=== PATIENT | male | born 1960 | race Two or more races ===

== ENCOUNTER 2016-07-01 10:43 | Emergency (ER) | payer OTHER ==
[~2016-07-01] VITALS: Ht 170.2 cm; Wt 83.9 kg
[2016-07-01 10:49] VITALS: BP 143/88
[2016-07-01] MEDS ORDERED: TETANUS-DIPTH-ACEL PERTUSSIS 0.5ML SYRG IM ONE (12:00)
== END 2016-07-01 12:41 | disposition home or self-care (01) ==
LOC: ER 10:43
DX: S61.232A Puncture wound without foreign body of right middle finger without damage to nail, initial encounter (principal); M79.5 Residual foreign body in soft tissue; I10 Essential (primary) hypertension; Z86.73 Personal history of transient ischemic attack (TIA), and cerebral infarction without residual deficits; X58.XXXA Exposure to other specified factors, initial encounter; Y93.89 Activity, other specified; Y99.8 Other external cause status; Y92.89 Other specified places as the place of occurrence of the external cause
CPT/HCPCS: 10120; 90471; 90715

== ENCOUNTER 2024-04-05 14:17 | Inpatient (IN) | payer BC, OTHER ==
[~2024-04-05] VITALS: Ht 167.6 cm; Wt 79.5 kg
--- NOTE | 2024-04-05 14:26 | ED.PDOC ---
HPI Comments 63-year-old male with PMHx HTN brought in by EMS presents with a chief complaint of chest pain x 1 hour onset with associated nausea. Patient reports that his pain is localized to his left chest wall, radiates to his back, describes as sharp, and rates his pain a 6/10. Patient mentions that he had a CABG done in 2021, but has not had an PA before. Patient endorses smoking cigarettes, but denies drug use. Patient does mention that he has been drinking alcohol today. No other symptoms or modifying factors present at this time. Chief Complaint: Chest Pain Time Seen by MD: 14:14 Primary Care Provider: BJ Reviewed Notes: Medications, Allergies Allergies: Coded Allergies: NO KNOWN ALLERGIES (Unverified , 09/01/11) Information Source: Patient Mode of Arrival: EMS Severity: Moderate Timing: Hours Duration: Since onset Prehospital treatment: None Location: Chest (L) Radiation: Back Quality: Sharp Onset: At Rest Cardiac Risk Factors: Smoker, HTN History of: Similar pain in past Past Medical History PAST MEDICAL HISTORY: CAD, HTN Surgical History: Denies all surgeries Family History Family History: Unknown Social History Smoker: Non-Smoker Alcohol: Denies ETOH Use Drugs: Denies Drug Use Lives In: Home Constitutional: denies: chills, diaphoresis, fatigue, fever, malaise, sweats, w eakness, others EENTM: denies: blurred vision, double vision, ear bleeding, ear discharge, ear drainage, ear pain, ear ringing, eye pain, eye redness, hearing loss, mouth pain, mouth swelling, nasal discharge, nose bleeding, nose congestion, nose pain, photophobia, tearing, throat pain, throat swelling, voice changes, others Respiratory: denies: cough, hemoptysis, orthopnea, SOB at rest, shortness of breath, SOB with excertion, stridor, wheezing, others Cardiovascular: reports: chest pain; denies: dizzy spells, diaphoresis, Dyspnea on exertion, edema, irregular heart beat, left arm pain, lightheadedness, palpitations, PND, syncope, others Gastrointestinal: reports: nausea; denies: abdomen distended, abdominal pain, blood streaked bowels, constipated, diarrhea, dysphagia, difficulty swallowing, hematemesis, melena, poor appetite, poor fluid intake, rectal bleeding, rectal pain, vomiting, others Genitourinary: denies: burning, dysuria, flank pain, frequency, hematuria, incontinence, penile discharge, penile sore, pain, testicle pain, testicle swelling, urgency, others Neurological: denies: dizziness, fainting, headache, left sided numbness, left sided weakness, numbness, paresthesia, pre-existing deficit, right sided numbness, right sided weakness, seizure, speech problems, tingling, tremors, weakness, others Musculoskeletal: denies: back pain, gout, joint pain, joint swelling, muscle pain, muscle stiffness, neck pain, others Integumetry: denies: bruises, change in color, change in hair/nails, dryness, laceration, lesions, lumps, rash, wounds, others Allergic/Immunocompromised: denies: Difficulty Healing, Frequent Infections, Hives, Itching, others Hematologic/Lymphatic: denies: anemia, blood clots, easy bleeding, easy bruising, swollen glands, others Endocrine: denies: excessive hunger, excessive sweating, excessive thirst, excessive urination, flushing, intolerance to cold, intolerance to heat, unexplained weight gain, unexplained weight loss, others Psychiatric: denies: anxiety, bipolar disorder, depression, hopeless, panic disorder, schizophrenia, sleepless, suicidal, others All Other Systems: Reviewed and Negative Physical Exam General Appearance: Moderate Distress HEENT: Normal ENT Inspection, Pharynx Normal, TMs Normal Neck: Full Range of Motion, Non-Tender, Normal, Normal Inspection Respiratory: Chest Non-Tender, Lungs Clear, No Accessory Muscle Use, No Respiratory Distress, Normal Breath Sounds Cardiovascular: No Edema, No JVD, No Murmur, No Gallop, Normal Peripheral Pulses, Regular Rate/Rhythm Breast Exam: Deferred Gastrointestinal: No Organomegaly, Non Tender, No Pulsatile Mass, Normal Bowel Sounds, Soft Genitalia: Deferred Pelvic: Deferred Rectal: Deferred Extremities: No calf tenderness, Normal capillary refill, Normal inspection, Normal range of motion, Non-tender, No pedal edema Musculoskeletal : Apperance: Normal Neurologic: Alert, gastroenterology technician II-XII nml as Tested, No Motor Deficits, Normal Affect, Normal Mood, No Sensory Deficits Cerebellar Function: NOT DONE Reflexes: NOT DONE Skin: Dry, Normal Color, Warm Peripheral Pulses: 3+ Radial (R), 3+ Radial (L) Lymphatic: No Adenopathy Was a procedure done? Was a procedure done?: No CP Differential Dx Differential Diagnosis: A-fib, A-Flutter, Angina, Anxiety / Panic Attack, At rial Dysrhythmia, Electrolyte Disorder X-Ray, Labs, Meds, VS Vital Signs Date Time Temp Pulse Resp B/P (MAP) Pulse Ox O2 Delivery O2 Flow Rate FiO2 04/05/24 14:38 79 04/05/24 14:26 98.2 92 18 102/64 (77) 98 Lab Test 04/05/24 14:43 Range/Units White Blood Count 4.6 4.4-10.8 10^3/uL Red Blood Count 4.55 4.5-5.90 10^6/uL Hemoglobin 15.3 13.5-17.5 g/dL Hematocrit 42.7 41.0-53.0 % Mean Corpuscular Volume 94.0 80.0-100.0 fL Mean Corpuscular Hemoglobin 33.7 H 28.0-32.0 pg Mean Corpuscular Hemoglobin Concent 35.8 32.0-36.0 g/dL Red Cell Distribution Width 13.7 11.8-14.3 % Platelet Count 139 L 140-450 10^3/uL Mean Platelet Volume 7.8 6.9-10.8 fL Neutrophils (%) (Auto) 46.0 37.0-80.0 % Lymphocytes (%) (Auto) 45.0 10.0-50.0 % Monocytes (%) (Auto) 6.4 0.0-12.0 % Eosinophils (%) (Auto) 1.3 0.0-7.0 % Basophils (%) (Auto) 1.3 0.0-2.0 % Neutrophils # (Auto) 2.1 1.6-8.6 10 ^3/uL Lymphocytes # (Auto) 2.1 0.4-5.4 10 ^3/uL Monocytes # (Auto) 0.3 0-1.3 10 ^3/uL Eosinophils # (Auto) 0.1 0-0.8 10 ^3/uL Basophils # (Auto) 0.1 0-0.2 10 ^3/uL Nucleated Red Blood Cells 0.5 % Sodium Level 127 L 136-145 mmol/L Potassium Level 3.9 3.5-5.1 mmol/L Chloride Level 94 L 98-107 mmol/L Carbon Dioxide Level 20 20-31 mmol/L Anion Gap 13 5-15 Blood Urea Nitrogen 13 9-23 mg/dL Creatinine 0.72 0.700-1.30 mg/dL Glomerular Filtration Rate Calc 103 >90 mL/min BUN/Creatinine Ratio 18.1 10.0-20.0 Serum Glucose 92 74-106 mg/dL Calcium Level 8.8 8.7-10.4 mg/dL Troponin I High Sensitivity 5 </=54 ng/L Plasma/Serum Blood Alcohol Pending Patient alert. Complaining of chest pain. Alcohol abuse. Vitals stable. His last drink was this morning. States that his chest pain does radiate to the back. Sodium is low. Cardiac marker within normal limits. EKG reviewed does not show any acute changes. WBC within normal limits. Establish intravenous access. Was given fluids. Was given aspirin. Chest x-ray reviewed does not show any acute changes. Explained to the patient. Continue cardiac monitoring. Time of 1ST Reevaluation: 14:44 Reevaluation 1ST: Unchanged Patient Education/Counseling: Diagnosis, Treatment, Prognosis Family Education/Counseling: Diagnosis, Treatment, Prognosis Departure 1 Departure Time of Disposition: 15:32 Impression: Primary Impression: Chest pain of unknown etiology Additional Impressions: Alcohol abuse Hyponatremia Disposition: ADMITTED INPATIENT Admit to: Med Surg Condition: Guarded Critical Care Note Critical Care Time?: No Stability Stability form required: No Heart Score Heart Score: Heart Score Response (Comments) Value History Slightly Suspicious 0 EKG Normal 0 Age 45-64 1 Risk Factors 1 or 2 risk factors 1 Troponin Normal limit 0 Total 2 I personally scribed for BERNIE RAMIREZ MD ([email or web address]) on 04/05/24 at 14:26. Electronically submitted by Oseas Martinez ([email or web address]). BERNIE RAMIREZ MD Apr 05, 2024 14:26
[2024-04-05] MEDS: SODIUM CHLORIDE 0.9% 1,000 ML IV ONE (14:30)
[2024-04-05] MEDS: THIAMINE 100mg/ml INJ (200mg/2ml VIAL) IV ONE (14:30)
[2024-04-05] MEDS: ASPirin 325 MG TAB PO ONE (14:30)
[2024-04-05 14:55] LABS: Basophils # (auto) 0.1 10 ^3/uL (0-0.2); Basophils % (auto) 1.3 % (0.0-2.0); Eosinophils # (auto) 0.1 10 ^3/uL (0-0.8); Eosinophils % (auto) 1.3 % (0.0-7.0); Hematocrit 42.7 % (41.0-53.0); Hemoglobin 15.3 g/dL (13.5-17.5); Lymphocytes # (auto) 2.1 10 ^3/uL (0.4-5.4); Mean Corpuscular Hemoglobin 33.7 pg (28.0-32.0); Mean Corpuscular Hgb Conc. 35.8 g/dL (32.0-36.0); Monocytes # (auto) 0.3 10 ^3/uL (0-1.3); Monocytes % (auto) 6.4 % (0.0-12.0); Neutrophils # (auto) 2.1 10 ^3/uL (1.6-8.6); Nucleated Red Blood Cells % 0.5 %; Platelet Count (auto) 139 10^3/uL (140-450); Red Blood Cells 4.55 10^6/uL (4.5-5.90); Red Cell Distribution Width 13.7 % (11.8-14.3); White Blood Cell 4.6 10^3/uL (4.4-10.8)
--- NOTE | 2024-04-05 15:10 | DVH ---
CHEST RADIOGRAPH Indication: sob Technique: Single frontal view of the chest was obtained Comparison: None FINDINGS: Lines and Tubes: None Lungs: No focal consolidation. Pleura: No effusion. No pneumothorax. Cardiomediastinal contours: Unremarkable Bones: No acute osseous abnormality. IMPRESSION: No acute cardiopulmonary disease.
[2024-04-05 15:11] LABS: Potassium 3.9 mmol/L (3.5-5.1)
[2024-04-05 15:12] LABS: Anion Gap 13 (5-15); Calcium 8.8 mg/dL (8.7-10.4)
[2024-04-05 15:17] LABS: BUN/Creatinine Ratio 18.1 (10.0-20.0); Blood Urea Nitrogen 13 mg/dL (9-23); Glucose 92 mg/dL (74-106)
[2024-04-05 15:20] LABS: Carbon Dioxide 20 mmol/L (20-31); Chloride 94 mmol/L (98-107); Sodium 127 mmol/L (136-145)
[2024-04-05 15:34] LABS: Blood Alcohol 307.3 mg/dL (<10)
[2024-04-05 16:44] VITALS: PULSE 75; RESP 18; O2SAT 98
[2024-04-05] MEDS ORDERED: LORazepam 2MG/ML-1ML VIAL IV PRN ×2 (17:45→22:00)
[2024-04-05] MEDS ORDERED: ONDANSETRON HCL 4 MG/2 ML VIAL IV PRN (18:30)
[2024-04-05] MEDS ORDERED: hydrALAZINE HCL 20 MG/ML VL IV PRN (18:30)
[2024-04-05] MEDS ORDERED: MORPHINE SULFATE INJ 2 MG/ml SYRG IV PRN (18:30)
[2024-04-05] MEDS ORDERED: NITROGLYCERIN 0.4 MG SL TAB SL PRN (18:30)
--- NOTE | 2024-04-05 19:06 | DVHHP2 ---
History of Present Illness Reason for Visit: Alcohol withdrawal History of Present Illness 63-year-old male with PMHx HTN brought in by EMS presents with a chief complaint of chest pain x 1 hour onset with associated nausea. Patient reports that his pain is localized to his left chest wall, radiates to his back, describes as sharp, and rates his pain a 6/10. 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 Patient was sober for 20 years, until 5 years ago patient continued drinking excessively, per patient's he was recently in the hospital for the same thing week. Patient endorses smoking cigarettes, but denies drug use. Patient does mention that he has been drinking alcohol today last drink 0600. No other symptoms or modifying factors present at this time. Past Medical History Retention, alcohol abuse, smoker, COPD, CAD Past Surgical History CABG Family History Denies Smoke: <1 pack per day ALCOHOL: heavy Drugs: None Lives: with Family Review of Systems Constitutional: Yes: Weakness, Malaise; No: Fever, Chills, Sweats, Other Eyes: No: Pain, Vision change, Conjunctivae inflammation, Eyelid inflammation, Other, Redness ENT: No: Ear pain, Ear discharge, Nose pain, Nose discharge, Nose congestion, Mouth pain, Mouth swelling, Throat pain, Throat swelling, Other Respiratory: No: Cough, Dry, Shortness of breath, SOB with excertion, Wheezing, Hemoptysis, Pleuritic Pain, Sputum, Wheezing, Other Cardiovascular: No: Chest Pain, Palpitations, Orthopnea, Paroxysmal Noc. Dyspnea, Edema, Lt Headedness, Other Gastrointestinal: Nausea Genitourinary: No Dysuria, No Frequency, No Incontinence, No Hematuria, No Retention, No Other Musculoskeletal: No: other, neck pain, shoulder pain, arm pain, back pain, hand pain, leg pain, foot pain Skin: No: Rash, Lesions, Jaundice, Bruising, Other Neurological: No: Weakness, Numbness, Incoordination, Change in speech, Confusion, Seizures, Other Allergies: Coded Allergies: NO KNOWN ALLERGIES (Unverified , 09/01/11) Medications Current Medications Medications Dose Ordered Sig/Macho Route Start Time Stop Time Status Last Admin Dose Admin Lorazepam 1 mg Q6H IV 04/05/24 17:45 Hold Lorazepam 1 mg Q2HPRN PRN IV 04/05/24 17:45 Lorazepam 2 mg Q3H IV 04/05/24 17:45 Folic Acid 1 mg/ Magnesium Sulfate 8 meq/ Multivitamins 10 ml/Thiamine HCl 100 mg/Sodium Chloride 1,013.2 ml @ 126.247 mls/hr DAILY@1800 INJ 04/05/24 18:00 Lisinopril 10 mg DAILY PO 04/06/24 10:00 Atorvastatin Calcium 40 mg HS PO 04/05/24 22:00 Aspirin 81 mg DAILY PO 04/06/24 10:00 Hydralazine HCl 10 mg Q6HP PRN IV 04/05/24 18:30 Acetaminophen/ Hydrocodone Bitart 1 tab Q4HP PRN PO 04/05/24 18:30 Ondansetron HCl 4 mg Q4HP PRN IV 04/05/24 18:30 Nitroglycerin 0.4 mg Q5MINP PRN SL 04/05/24 18:30 Morphine Sulfate 2 mg Q30M PRN IV 04/05/24 18:30 Exam Vital Signs Vital Signs Date Time Temp Pulse Resp B/P (MAP) Pulse Ox O2 Delivery O2 Flow Rate FiO2 04/05/24 17:43 90 04/05/24 16:44 98.0 16 150/93 (112) 98 98.0 04/05/24 16:44 Room Air* 0 21 General Appearance: Alert, Oriented X3, Cooperative, No acute distress HEENT: Atraumatic, PERRLA, EOMI, Mucous membr. moist/pink Respiratory: Clear to auscultation, Normal air movement Cardiovascular: Regular rate, Normal S1, Normal S2, No murmurs Abdominal: Normal bowel sounds, Soft, No tenderness, No hepatospenomegaly, No masses Extremities: No clubbing, No cyanosis, No edema, Normal pulses, No tenderness/swelling Skin: No rashes, No breakdown, No significant lesion Neuro: Normal gait, Normal speech, Strength at 5/5 X4 ext, Normal tone, Sensation intact, Cranial nerves 3-12 NL Psych/Mental Status: Mental status NL, Mood NL Labs/Xrays Reviewed Labs Test 04/05/24 14:43 Range/Units White Blood Count 4.6 4.4-10.8 10^3/uL Red Blood Count 4.55 4.5-5.90 10^6/uL Hemoglobin 15.3 13.5-17.5 g/dL Hematocrit 42.7 41.0-53.0 % Mean Corpuscular Volume 94.0 80.0-100.0 fL Mean Corpuscular Hemoglobin 33.7 H 28.0-32.0 pg Mean Corpuscular Hemoglobin Concent 35.8 32.0-36.0 g/dL Red Cell Distribution Width 13.7 11.8-14.3 % Platelet Count 139 L 140-450 10^3/uL Mean Platelet Volume 7.8 6.9-10.8 fL Neutrophils (%) (Auto) 46.0 37.0-80.0 % Lymphocytes (%) (Auto) 45.0 10.0-50.0 % Monocytes (%) (Auto) 6.4 0.0-12.0 % Eosinophils (%) (Auto) 1.3 0.0-7.0 % Basophils (%) (Auto) 1.3 0.0-2.0 % Neutrophils # (Auto) 2.1 1.6-8.6 10 ^3/uL Lymphocytes # (Auto) 2.1 0.4-5.4 10 ^3/uL Monocytes # (Auto) 0.3 0-1.3 10 ^3/uL Eosinophils # (Auto) 0.1 0-0.8 10 ^3/uL Basophils # (Auto) 0.1 0-0.2 10 ^3/uL Nucleated Red Blood Cells 0.5 % Sodium Level 127 L 136-145 mmol/L Potassium Level 3.9 3.5-5.1 mmol/L Chloride Level 94 L 98-107 mmol/L Carbon Dioxide Level 20 20-31 mmol/L Anion Gap 13 5-15 Blood Urea Nitrogen 13 9-23 mg/dL Creatinine 0.72 0.700-1.30 mg/dL Glomerular Filtration Rate Calc 103 >90 mL/min BUN/Creatinine Ratio 18.1 10.0-20.0 Serum Glucose 92 74-106 mg/dL Calcium Level 8.8 8.7-10.4 mg/dL Troponin I High Sensitivity 5 </=54 ng/L Plasma/Serum Blood Alcohol 307.3 H <10 mg/dL Assessment/Plan Assessment/Plan ETOH withdrawal Admit to telemetry and monitor for DTs CIWA protocol likely why he is nauseous Zofran p.r.n. Pain Medications p.r.n. Ativan p.r.n. withdrawal symptoms Run banana bag Dysuria UA pending Nicotine dependence Discussed cessation with patient Patient states he does not smoke enough to need a nicotine patch at this time Hypertensive urgency Start home medications Lysine p.r.n. 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 Procedure Category Date Status Time Drug Screen LAB 04/05/24 Logged 17:37 Urinalysis LAB 04/05/24 Logged 17:37 Oxygen ED NURSING 04/05/24 Transmitted 17:37 Delivery Supervisor ED NURSING 04/05/24 Transmitted 17:37 Blood Pressure ED NURSING 04/05/24 Transmitted 17:37 Pulse Oximetry ED NURSING 04/05/24 Transmitted 17:37 Lorazepam 2mg/Ml Inj PHA 04/05/24 In Process (Ativan Inj) 17:45 Lorazepam 2mg/Ml Inj PHA 04/05/24 In Process (Ativan Inj) 17:45 Lorazepam 2mg/Ml Inj PHA 04/05/24 In Process (Ativan Inj) 17:45 Etoh Withdrawal ROZINA 04/05/24 In Process Assessment 17:37 Etoh Withdrawal ROZINA 04/05/24 In Process Assessment 17:37 Folic Acid... PHA 04/05/24 In Process 18:00 Lisinopril Tablet PHA 04/06/24 In Process (Zestril Tablet) 10:00 Atorvastatin (Lipitor) PHA 04/05/24 In Process 22:00 Aspirin Tablet PHA 04/06/24 In Process 10:00 Hydralazine Injection PHA 04/05/24 In Process (Apresoline Inject 18:30 Admit ADMIT 04/05/24 Transmitted 18:25 Code Status CODE 04/05/24 Transmitted 18:25 Vital Signs ROZINA 04/05/24 In Process 18:25 Review Orders With ROZINA 04/05/24 In Process Adm. 18:25 Bedside Commode ROZINA 04/05/24 In Process 18:25 Notify Of Changes ROZINA 04/05/24 In Process From Base 18:25 Advance Directive ROZINA 04/05/24 In Process 18:25 Basic Metabolic Panel LAB 04/06/24 Verified 04:00 Complete Blood Count LAB 04/06/24 Verified 04:00 Lipid Panel LAB 04/06/24 Verified 04:00 Patient Condition ORDERS 04/05/24 Transmitted 18:25 Allergies ROZINA 04/05/24 In Process 18:25 Hydrocodone-Acet PHA 04/05/24 In Process 5/325mg Tab ([place] 18:30 Ondansetron Hcl PHA 04/05/24 In Process (Zofran) 18:30 Hemoglobin A1c LAB 04/06/24 Verified 04:00 Cardiac DIET 04/05/24 Transmitted Diet-2gna,Lofat,Lochol Dinner Nitroglycerin PHA 04/05/24 In Process Sublingual (Ntrostat 18:30 Morphine Sulfate PHA 04/05/24 In Process Injection 18:30 Stat Ekg For Chest ROZINA 04/05/24 In Process Pain 18:25 Notify Of Changes ROZINA 04/05/24 In Process From Base 18:25 Erp Project Manager For ROZINA 04/05/24 In Process 24 Hours 18:25 Emergency Dysrhythmia ROZINA 04/05/24 In Process Protocol 18:25 Rhythm Strips Once ROZINA 04/05/24 In Process Every Shift 18:25 Oxygen By Nasal RT 04/05/24 Transmitted Cannula 18:25 Date of Service: Apr 05, 2024 Billing Provider: CARY GALE Common Visit Codes: [id number] INP/OBS CARE(HIGH) CARY GALE Apr 05, 2024 19:06
[2024-04-05] MEDS: FOLIC ACID 1 MG, MAGNESIUM SULF SDV 50% 8 MEQ, MULTIPLE VITAMIN 10 ML, THIAMINE INJ 100... INJ SCH (20:12)
[2024-04-05] MEDS: LORazepam 2MG/ML-1ML VIAL IV SCH ×2 (20:17→20:23)
[2024-04-05] MEDS: HYDROcodone-ACET 5/325MG TAB PO PRN (20:53)
[2024-04-05] MEDS: chlordiazePOXIDE HCL 25 MG CAP PO SCH (20:55)
[2024-04-05] MEDS: ATORVASTATIN 20 MG TAB PO SCH (23:54)
[2024-04-06] VITALS (7 sets, daily range): BP systolic 114–138; BP diastolic 75–84; PULSE 70–93; RESP 17–18; TEMP 96.7–98; O2SAT 93–98
[2024-04-06 00:01] LABS: Urine Bacteria None Seen /hpf (None Seen)
[2024-04-06 00:24] LABS: Benzodiazephine Screen, Urine Neg (NEGATIVE); Opiate Scree,Urine Neg (NEGATIVE)
[2024-04-06 00:32] LABS: Amphetamine Screen, Urine Neg (NEGATIVE); Barbiturate Scree,Urine Neg (NEGATIVE); Cannabinoid Screen, Urine Neg (NEGATIVE); Cocaine Screen, Urine Neg (NEGATIVE); Phencyclidine Screen, Urine Neg (NEGATIVE)
[2024-04-06 00:34] LABS: Urine Blood Negative /uL (Negative); Urine Clarity Clear (Clear); Urine Color Yellow (Yellow); Urine Protein, UAD Negative (Negative); Urine Squamous Epithelial Cell FEW /hpf (<5); Urine Urobilinogen OVER mg/dL (Negative); Urine WBC 1 /HPF (0-3)
[2024-04-06 06:20] LABS: Basophils # (auto) 0 10 ^3/uL (0-0.2); Basophils % (auto) 1.2 % (0.0-2.0); Eosinophils # (auto) 0.1 10 ^3/uL (0-0.8); Eosinophils % (auto) 3.5 % (0.0-7.0); Hematocrit 39.1 % (41.0-53.0); Hemoglobin 13.8 g/dL (13.5-17.5); Lymphocytes # (auto) 1.2 10 ^3/uL (0.4-5.4); Mean Corpuscular Hgb Conc. 35.2 g/dL (32.0-36.0); Mean Corpuscular Volume 93.9 fL (80.0-100.0); Monocytes # (auto) 0.3 10 ^3/uL (0-1.3); Monocytes % (auto) 8.7 % (0.0-12.0); Neutrophils # (auto) 1.7 10 ^3/uL (1.6-8.6); Neutrophils % (auto) 50.6 % (37.0-80.0); Nucleated Red Blood Cells % 0.2 %; Platelet Count (auto) 131 10^3/uL (140-450); Red Blood Cells 4.17 10^6/uL (4.5-5.90); Red Cell Distribution Width 13.8 % (11.8-14.3); White Blood Cell 3.4 10^3/uL (4.4-10.8)
[2024-04-06 06:24] LABS: Anion Gap 10 (5-15); Carbon Dioxide 21 mmol/L (20-31); Chloride 99 mmol/L (98-107); Potassium 3.6 mmol/L (3.5-5.1)
[2024-04-06 06:30] LABS: Blood Urea Nitrogen 12 mg/dL (9-23); Triglycerides 76 mg/dL (< 150)
[2024-04-06 06:31] LABS: LDL Cholesterol 75 mg/dL (< 100)
[2024-04-06 06:32] LABS: Cholesterol 164 mg/dL (< 200)
[2024-04-06 06:47] LABS: Glucose 153 mg/dL (74-106); HDL Cholesterol 74 mg/dL (40-59); Sodium 130 mmol/L (136-145)
[2024-04-06] MEDS: LISINOPRIL 5 MG TAB PO SCH (09:38)
[2024-04-06] MEDS: ASPirin 81 mg TAB PO SCH (09:48)
[2024-04-06] MEDS: chlordiazePOXIDE HCL 25 MG CAP PO SCH (09:48)
--- NOTE | 2024-04-06 14:47 | DVHPN2 ---
Subjective The patient seen and examined at bedside. Patient seem to be anxious but no sharking. Reviewed: Care Plan, H&P, Labs, Medications, Previous Orders, Radiology Changes from previous H/P or p: No Changes Eyes: No Pain, No Vision change, No Conjunctivae inflammation, No Eyelid inflammation, No Other, No Redness ENT: No Ear pain, No Ear discharge, No Nose pain, No Nose discharge, No Nose congestion, No Mouth pain, No Mouth swelling, No Throat pain, No Throat swelling, No Other Cardiovascular: No Chest Pain, No Palpitations, No Orthopnea, No Paroxysmal Noc. Dyspnea, No Edema, No Lt Headedness, No Other Respiratory: No Cough, No Dry, No Shortness of breath, No SOB with excertion, No Wheezing, No Hemoptysis, No Pleuritic Pain, No Sputum, No Other Gastrointestinal: Nausea Genitourinary: No Dysuria, No Frequency, No Incontinence, No Hematuria, No Retention, No Other Musculoskeletal: No other, No neck pain, No shoulder pain, No arm pain, No back pain, No hand pain, No leg pain, No foot pain Skin: No Rash, No Lesions, No Jaundice, No Bruising, No Other Objective Vitals Vital Signs Date Time Temp Pulse Resp B/P (MAP) Pulse Ox O2 Delivery O2 Flow Rate FiO2 04/06/24 12:37 97.5 70 17 114/75 (88) 95 97.5 04/06/24 01:06 Room Air 04/05/24 16:44 0 21 Intake/Output Intake and Output 04/06/24 07:00 Intake Total 1000 ml Balance 1000 ml Intake IV Total 1000 ml General Appearance: Alert, Cooperative, No acute distress HEENT: Atraumatic, PERRLA, EOMI, Mucous membr. moist/pink Neck: Supple Lungs: Clear to auscultation, Normal air movement Cardiovascular: Regular rate, Normal S1, Normal S2, No murmurs, Gallops, Rubs Abdomen: Normal bowel sounds, Soft, No tenderness Neuro: Cranial nerves 3-12 NL Psych/Mental Status: Mental status NL Medications Current Medications Medications Dose Ordered Sig/Macho Route Start Time Stop Time Status Last Admin Dose Admin Folic Acid 1 mg/ Magnesium Sulfate 8 meq/ Multivitamins 10 ml/Thiamine HCl 100 mg/Sodium Chloride 1,013.2 ml @ 126.247 mls/hr DAILY@1800 INJ 04/05/24 18:00 04/05/24 20:12 126.247 MLS/HR Lisinopril 10 mg DAILY PO 04/06/24 10:00 04/06/24 09:38 10 MG Atorvastatin Calcium 40 mg HS PO 04/05/24 22:00 04/05/24 23:54 40 MG Aspirin 81 mg DAILY PO 04/06/24 10:00 Hydralazine HCl 10 mg Q6HP PRN IV 04/05/24 18:30 Acetaminophen/ Hydrocodone Bitart 1 tab Q4HP PRN PO 04/05/24 18:30 04/06/24 13:54 1 TAB Ondansetron HCl 4 mg Q4HP PRN IV 04/05/24 18:30 Nitroglycerin 0.4 mg Q5MINP PRN SL 04/05/24 18:30 Morphine Sulfate 2 mg Q30M PRN IV 04/05/24 18:30 Lorazepam 2 mg Q3H PRN IV 04/05/24 22:00 Chlordiazepoxide HCl 50 mg Q12HR PO 04/06/24 10:00 04/06/24 22:01 Chlordiazepoxide HCl 25 mg Q12HR PO 04/07/24 10:00 04/07/24 22:01 Chlordiazepoxide HCl 25 mg QAM PO 04/08/24 07:00 04/08/24 07:01 Laboratory Results Laboratory Tests 04/06/24 05:19 Chemistry Test 04/06/24 05:19 Calcium Level 9.0 mg/dL (8.7-10.4) Lipid panel Test 04/06/24 05:19 Cholesterol Level 164 mg/dL (< 200) HDL Cholesterol 74 mg/dL (40-59) H Triglycerides Level 76 mg/dL (< 150) HgA1c, TSH Test 04/06/24 05:19 Hemoglobin A1c 5.7 % A1C (<5.7) Urinalysis Test 04/05/24 23:45 Urine Color Yellow (Yellow) Urine Clarity Clear (Clear) Urine pH 6.0 (5.0-9.0) Urine Specific [place] 1.020 (1.001-1.035) Urine Protein Negative (Negative) Urine Ketones Trace (Negative) Urine Blood Negative /uL (Negative) Urine Nitrite Negative (Negative) Urine Bilirubin Negative (Negative) Urine Urobilinogen Over mg/dL (Negative) Urine Leukocyte Esterase Negative /uL (Negative) Urine RBC 1 /hpf (0 - 3) Urine Microscopic WBC 1 /HPF (0-3) Urine Squamous Epithelial Cells Few /hpf (<5) Urine Bacteria None seen /hpf (None Seen) Urine Glucose Normal mg/dL (Normal) Labs and/or images reviewed: Labs reviewed by me Assessment/Plan Assessment/Plan ETOH withdrawal Dysuria Nicotine dependence Continuing Current management Continuing with banana bag, Librium, Ativan. Discussed cessation with patient This medical document was created using an electronic medical record system with [employer] dictation system. Although this document has been carefully reviewed, there may still be some phonetic and typographical errors. These areas are purely typographical due to imperfections of the software programs, and do not reflect any compromise in the patient's medical care. Plan discussed with: Patient Date of Service: Apr 06, 2024 Billing Provider: OWEN CROWE MD Common Visit Codes: [id number] INP/OBS CARE(HIGH) OWEN CROWE MD Apr 06, 2024 14:47
[2024-04-07 01:00] VITALS: BP 121/80; PULSE 76; RESP 17; TEMP 97.4; O2SAT 96
[2024-04-07 05:00] VITALS: BP 86/55; PULSE 80; RESP 18; TEMP 97.6; O2SAT 96
[2024-04-07 07:45] VITALS: PULSE 87
--- NOTE | 2024-04-07 08:27 | DVHINCON2 ---
Date of service: Apr 07, 2024 History of Present Illness 63 yo M etoh abuse, cad s/p cabg, htn, hl admitted for etoh abuse and alcohol intoxication and back pain ,leg pain. trops are - Past Medical History reviewed Family History: Arthritis G8 MOTHER FH: cirrhosis G8 FATHER FH: dementia G8 MOTHER Hypertension G8 MOTHER Allergies: Coded Allergies: NO KNOWN ALLERGIES (Unverified , 09/01/11) Current Medications Current Medications Medications (Trade) Dose Ordered Sig/Macho Route PRN Reason Start Time Stop Time Status Last Admin Lisinopril (Zestril Tablet) 10 mg DAILY PO 04/06/24 10:00 04/06/24 09:38 Aspirin 81 mg DAILY PO 04/06/24 10:00 Chlordiazepoxide HCl (Librium Capsule) 50 mg Q12HR PO 04/06/24 10:00 04/06/24 22:01 DC 04/06/24 21:40 Chlordiazepoxide HCl (Librium Capsule) 25 mg Q12HR PO 04/07/24 10:00 04/07/24 22:01 Chlordiazepoxide HCl (Librium Capsule) 25 mg QAM PO 04/08/24 07:00 04/08/24 07:01 Review of Systems 10 pt ros otherwise negative Vital Signs Vital Signs Date Time Temp Pulse Resp B/P (MAP) Pulse Ox O2 Delivery O2 Flow Rate FiO2 04/07/24 05:00 97.6 80 18 86/55 (65) 96 97.6 04/06/24 20:00 Room Air* 0 21 Physical Exam nad foul smelling disheveled pt s1 s2 rrr ctab Labs/Diagnostic Data Labs Test 04/06/24 05:19 04/05/24 23:45 04/05/24 14:43 Range/Units White Blood Count 3.4 #L 4.4-10.8 10^3/uL Red Blood Count 4.17 L 4.5-5.90 10^6/uL Hemoglobin 13.8 13.5-17.5 g/dL Hematocrit 39.1 L 41.0-53.0 % Mean Corpuscular Volume 93.9 80.0-100.0 fL Mean Corpuscular Hemoglobin 33.0 H 28.0-32.0 pg Mean Corpuscular Hemoglobin Concent 35.2 32.0-36.0 g/dL Red Cell Distribution Width 13.8 11.8-14.3 % Platelet Count 131 L 140-450 10^3/uL Mean Platelet Volume 8.3 6.9-10.8 fL Neutrophils (%) (Auto) 50.6 37.0-80.0 % Lymphocytes (%) (Auto) 36.0 10.0-50.0 % Monocytes (%) (Auto) 8.7 0.0-12.0 % Eosinophils (%) (Auto) 3.5 0.0-7.0 % Basophils (%) (Auto) 1.2 0.0-2.0 % Neutrophils # (Auto) 1.7 1.6-8.6 10 ^3/uL Lymphocytes # (Auto) 1.2 0.4-5.4 10 ^3/uL Monocytes # (Auto) 0.3 0-1.3 10 ^3/uL Eosinophils # (Auto) 0.1 0-0.8 10 ^3/uL Basophils # (Auto) 0 0-0.2 10 ^3/uL Nucleated Red Blood Cells 0.2 % Sodium Level 130 L 136-145 mmol/L Potassium Level 3.6 3.5-5.1 mmol/L Chloride Level 99 98-107 mmol/L Carbon Dioxide Level 21 20-31 mmol/L Anion Gap 10 5-15 Blood Urea Nitrogen 12 9-23 mg/dL Creatinine 0.86 0.700-1.30 mg/dL Glomerular Filtration Rate Calc 97 >90 mL/min BUN/Creatinine Ratio 14.0 10.0-20.0 Serum Glucose 153 H 74-106 mg/dL Hemoglobin A1c 5.7 <5.7 % A1C Calcium Level 9.0 8.7-10.4 mg/dL Triglycerides Level 76 < 150 mg/dL Cholesterol Level 164 < 200 mg/dL LDL Cholesterol 75 < 100 mg/dL HDL Cholesterol 74 H 40-59 mg/dL Urine Color Yellow Yellow Urine Clarity Clear Clear Urine pH 6.0 5.0-9.0 Urine Specific [place] 1.020 1.001-1.035 Urine Protein Negative Negative Urine Ketones Trace Negative Urine Blood Negative Negative /uL Urine Nitrite Negative Negative Urine Bilirubin Negative Negative Urine Urobilinogen Over Negative mg/dL Urine Leukocyte Esterase Negative Negative /uL Urine RBC 1 0 - 3 /hpf Urine Microscopic WBC 1 0-3 /HPF Urine Squamous Epithelial Cells Few <5 /hpf Urine Bacteria None seen None Seen /hpf Urine Glucose Normal Normal mg/dL Urine Opiates Screen Neg NEGATIVE Urine Fentanyl Screen Neg NEGATIVE Urine Barbiturates Screen Neg NEGATIVE Urine Phencyclidine Screen Neg NEGATIVE Urine Amphetamines Screen Neg NEGATIVE Urine Benzodiazepines Screen Neg NEGATIVE Urine Cocaine Screen Neg NEGATIVE Urine Cannabinoids Screen Neg NEGATIVE Troponin I High Sensitivity 5 </=54 ng/L Plasma/Serum Blood Alcohol 307.3 H <10 mg/dL Assessment etoh abuse cad cabg HTN HL Plan/Recommendation ruled out acs cont asa cont BB cont statin outpt fu with his trauma doctor avoid etoh Plan discussed with: Patient PERRY HAYNES MD Apr 07, 2024 08:27
[2024-04-07 09:00] VITALS: BP 123/80; PULSE 88; RESP 16; TEMP 97.8; O2SAT 96
[2024-04-07] MEDS: chlordiazePOXIDE HCL 25 MG CAP PO SCH (11:04)
--- NOTE | 2024-04-07 12:46 | DVHPN2 ---
Eyes: No Pain, No Vision change, No Conjunctivae inflammation, No Eyelid inflammation, No Other, No Redness ENT: No Ear pain, No Ear discharge, No Nose pain, No Nose discharge, No Nose congestion, No Mouth pain, No Mouth swelling, No Throat pain, No Throat swelling, No Other Cardiovascular: No Chest Pain, No Palpitations, No Orthopnea, No Paroxysmal Noc. Dyspnea, No Edema, No Lt Headedness, No Other Respiratory: No Cough, No Dry, No Shortness of breath, No SOB with excertion, No Wheezing, No Hemoptysis, No Pleuritic Pain, No Sputum, No Other Gastrointestinal: Nausea Genitourinary: No Dysuria, No Frequency, No Incontinence, No Hematuria, No Retention, No Other Musculoskeletal: No other, No neck pain, No shoulder pain, No arm pain, No back pain, No hand pain, No leg pain, No foot pain Skin: No Rash, No Lesions, No Jaundice, No Bruising, No Other Objective Vitals Vital Signs Date Time Temp Pulse Resp B/P (MAP) Pulse Ox O2 Delivery O2 Flow Rate FiO2 04/07/24 11:05 123/80 04/07/24 09:00 97.8 88 16 96 97.8 04/06/24 20:00 Room Air* 0 21 Intake/Output Intake and Output 04/07/24 07:00 Intake Total 2714.435 ml Balance 2714.435 ml Intake Oral 1070 ml IV Total 1644.435 ml # Voids 2 Medications Current Medications Medications Dose Ordered Sig/Macho Route Start Time Stop Time Status Last Admin Dose Admin Lisinopril 10 mg DAILY PO 04/06/24 10:00 04/07/24 11:05 10 MG Atorvastatin Calcium 40 mg HS PO 04/05/24 22:00 04/06/24 21:40 40 MG Aspirin 81 mg DAILY PO 04/06/24 10:00 04/07/24 11:03 81 MG Hydralazine HCl 10 mg Q6HP PRN IV 04/05/24 18:30 Acetaminophen/ Hydrocodone Bitart 1 tab Q4HP PRN PO 04/05/24 18:30 04/07/24 11:07 1 TAB Ondansetron HCl 4 mg Q4HP PRN IV 04/05/24 18:30 Nitroglycerin 0.4 mg Q5MINP PRN SL 04/05/24 18:30 Morphine Sulfate 2 mg Q30M PRN IV 04/05/24 18:30 Lorazepam 2 mg Q3H PRN IV 04/05/24 22:00 Chlordiazepoxide HCl 25 mg Q12HR PO 04/07/24 10:00 04/07/24 22:01 04/07/24 11:04 25 MG Chlordiazepoxide HCl 25 mg QAM PO 04/08/24 07:00 04/08/24 07:01 Folic Acid 1 mg DAILY PO 04/07/24 12:00 Magnesium Oxide 400 mg DAILY PO 04/07/24 12:00 Multivitamins 1 tab DAILY PO 04/07/24 12:00 Thiamine HCl 100 mg DAILY PO 04/07/24 12:00 Laboratory Results Laboratory Tests 04/06/24 05:19 Urinalysis Test 04/05/24 23:45 Urine Color Yellow (Yellow) Urine Clarity Clear (Clear) Urine pH 6.0 (5.0-9.0) Urine Specific [place] 1.020 (1.001-1.035) Urine Protein Negative (Negative) Urine Ketones Trace (Negative) Urine Blood Negative /uL (Negative) Urine Nitrite Negative (Negative) Urine Bilirubin Negative (Negative) Urine Urobilinogen Over mg/dL (Negative) Urine Leukocyte Esterase Negative /uL (Negative) Urine RBC 1 /hpf (0 - 3) Urine Microscopic WBC 1 /HPF (0-3) Urine Squamous Epithelial Cells Few /hpf (<5) Urine Bacteria None seen /hpf (None Seen) Urine Glucose Normal mg/dL (Normal) Assessment/Plan My Orders Orders - OWEN CROWE MD Procedure Category Date Status Time * Cardiology Consult CONS 04/06/24 Transmitted 15:36 OWEN CROWE MD Apr 07, 2024 12:46
[2024-04-07 12:51] VITALS: BP 115/79; PULSE 90; RESP 14; TEMP 97.8; O2SAT 96
[2024-04-07] MEDS: THIAMINE HCL 100 MG TAB PO SCH (13:42)
[2024-04-07] MEDS: MAGNESIUM OXIDE 400 MG TAB PO SCH (13:42)
[2024-04-07] MEDS: MULTIPLE VITAMIN TAB PO SCH (13:42)
[2024-04-07] MEDS: FOLIC ACID 1 MG TAB PO SCH (13:42)
[2024-04-07] MEDS ORDERED: LORA-655 PO (14:01)
--- NOTE | 2024-04-07 14:08 | DVHDS2 ---
Discharge Summary Date of Admission Apr 05, 2024 at 18:25 Date of Discharge: Apr 07, 2024 Admitting Diagnosis ETOH withdrawal Dysuria Nicotine dependence Labs/Diagnostic Data: Laboratory Results Test 04/06/24 05:19 04/05/24 23:45 04/05/24 14:43 White Blood Count 3.4 10^3/uL (4.4-10.8) Red Blood Count 4.17 10^6/uL (4.5-5.90) Hemoglobin 13.8 g/dL (13.5-17.5) Hematocrit 39.1 % (41.0-53.0) Mean Corpuscular Volume 93.9 fL (80.0-100.0) Mean Corpuscular Hemoglobin 33.0 pg (28.0-32.0) Mean Corpuscular Hemoglobin Concent 35.2 g/dL (32.0-36.0) Red Cell Distribution Width 13.8 % (11.8-14.3) Platelet Count 131 10^3/uL (140-450) Mean Platelet Volume 8.3 fL (6.9-10.8) Neutrophils (%) (Auto) 50.6 % (37.0-80.0) Lymphocytes (%) (Auto) 36.0 % (10.0-50.0) Monocytes (%) (Auto) 8.7 % (0.0-12.0) Eosinophils (%) (Auto) 3.5 % (0.0-7.0) Basophils (%) (Auto) 1.2 % (0.0-2.0) Neutrophils # (Auto) 1.7 10 ^3/uL (1.6-8.6) Lymphocytes # (Auto) 1.2 10 ^3/uL (0.4-5.4) Monocytes # (Auto) 0.3 10 ^3/uL (0-1.3) Eosinophils # (Auto) 0.1 10 ^3/uL (0-0.8) Basophils # (Auto) 0 10 ^3/uL (0-0.2) Nucleated Red Blood Cells 0.2 % Sodium Level 130 mmol/L (136-145) Potassium Level 3.6 mmol/L (3.5-5.1) Chloride Level 99 mmol/L (98-107) Carbon Dioxide Level 21 mmol/L (20-31) Anion Gap 10 (5-15) Blood Urea Nitrogen 12 mg/dL (9-23) Creatinine 0.86 mg/dL (0.700-1.30) Glomerular Filtration Rate Calc 97 mL/min (>90) BUN/Creatinine Ratio 14.0 (10.0-20.0) Serum Glucose 153 mg/dL (74-106) Hemoglobin A1c 5.7 % A1C (<5.7) Calcium Level 9.0 mg/dL (8.7-10.4) Triglycerides Level 76 mg/dL (< 150) Cholesterol Level 164 mg/dL (< 200) LDL Cholesterol 75 mg/dL (< 100) HDL Cholesterol 74 mg/dL (40-59) Urine Color Yellow (Yellow) Urine Clarity Clear (Clear) Urine pH 6.0 (5.0-9.0) Urine Specific [place] 1.020 (1.001-1.035) Urine Protein Negative (Negative) Urine Ketones Trace (Negative) Urine Blood Negative /uL (Negative) Urine Nitrite Negative (Negative) Urine Bilirubin Negative (Negative) Urine Urobilinogen Over mg/dL (Negative) Urine Leukocyte Esterase Negative /uL (Negative) Urine RBC 1 /hpf (0 - 3) Urine Microscopic WBC 1 /HPF (0-3) Urine Squamous Epithelial Cells Few /hpf (<5) Urine Bacteria None seen /hpf (None Seen) Urine Glucose Normal mg/dL (Normal) Urine Opiates Screen Neg (NEGATIVE) Urine Fentanyl Screen Neg (NEGATIVE) Urine Barbiturates Screen Neg (NEGATIVE) Urine Phencyclidine Screen Neg (NEGATIVE) Urine Amphetamines Screen Neg (NEGATIVE) Urine Benzodiazepines Screen Neg (NEGATIVE) Urine Cocaine Screen Neg (NEGATIVE) Urine Cannabinoids Screen Neg (NEGATIVE) Troponin I High Sensitivity 5 ng/L (</=54) Plasma/Serum Blood Alcohol 307.3 mg/dL (<10) Other Laboratory Tests 04/06/24 05:19 Brief Hx & Hospital Course: This is a 63 years old male with past medical history hypertension came to emergency department because of chest pain with nausea. The patient described chest pain is sharp 6/10. The patient has a CABG done 2021 and a quadruple bypass. 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 The patient is sober for 20 years until five years ago he continuing to drink excessively. Per he recently was hospitalized for alcohol withdrawal. The patient now was admitted for alcohol withdrawal he last binge drinking is on the day of admission. The patient was put on banana bag, Ativan, Librium. The patient subsequently doing better. His blood pressure control. I am going to discharge him home. Advised him to follow up with primary care physician 1-2 weeks. Also complained of dysuria but UA is negative for any bacteria or urinary tract infection. I advised him to follow up with urologist as outpatient if he continuing to have problem with his urination. The patient also seen by residence supervisor for his chest pain. Dr. Vela did not recommend any further workup. He recommend the patient to stop drinking and contribute the chest pain due to alcohol withdrawal. His troponin level three set is negative. His EKG is normal. Advised him to stop drinking and stop smoking cigarette. Continuing home med for hypertension medication. Physical exam: HEENT: Normocephalic atraumatic pupils equal react to light and accommodation. Extraocular muscles intact, conjunctiva pink, oropharynx moist, no thrush, no exudate. Lymphatic: No lymphadenopathy Cardiovascular exam: S1, S2 was heard. No murmurs, rubs, gallops Lung: Clear on auscultation bilaterally, no wheeze, rale, rhonchi. GI: Abdominal soft, nondistended, nontenderness, positive bowel sounds. Extremity: No crepitus, cyanosis, edema. Pedal pulses present bilateral. Full range of motion. Skin: Normal turgor, no rash. Psych: Alert, oriented x3. Neurology: No focal deficits, cranial nerve II to XII grossly intact. Condition at Discharge: Stable Final Diagnosis/Problems List ETOH withdrawal Dysuria Nicotine dependence Discharge Disposition: Home Discharge Instruct/Medications Diet: Cardiac 2g Na,low cholest Activity: No Restrictions, As Tolerated Follow Up/Referral: PCP 1-2 WEEKS Medications: ATIVAN 1MG po Q8Hprn Discharge Statement: "Patient was advised to return to the ER or call 911 if any headaches, dizziness, shortness of breath, chest pain, abdominal pain, bleeding, fevers, or worsening of medical condition. Patient was counseled about treatment plan, medications, possible side effects, patientverbalized understanding. All questions were answered to the best of my ability. This discharge took greater then 30 minutes in planning, reviewing documentation, counseling the patient, and discussing with other team members." ASSESSMENT ASSESSMENT Assessment ETOH WITHDRAWAL Date of Service: Apr 07, 2024 Billing Provider: OWEN CROWE MD Common Visit Codes: 62505-XZG/OBS DISCH DAY >30min OWEN CROWE MD Apr 07, 2024 14:08
[2024-04-08] MEDS ORDERED: chlordiazePOXIDE HCL 25 MG CAP PO SCH (07:00)
--- NOTE | 2024-04-08 14:39 | ECG ---
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
--- NOTE | 2024-04-09 13:01 | ECG ---
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
--- NOTE | 2024-04-09 13:56 | ECG ---
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
== END 2024-04-07 18:07 | disposition home or self-care (01) | DRG 897 ==
LOC: EDBD 14:17 → ER 14:17 → OVERFLOW 18:25 → TELE-CENTR 04-06 18:32
PROVIDERS: ADMIT Registered Nurse General Practice; ATTEND Registered Nurse General Practice
DX: F10.139 Alcohol abuse with withdrawal, unspecified (principal); E87.1 Hypo-osmolality and hyponatremia; R07.89 Other chest pain; I16.0 Hypertensive urgency; I10 Essential (primary) hypertension; E78.5 Hyperlipidemia, unspecified; F17.210 Nicotine dependence, cigarettes, uncomplicated; Y90.8 Blood alcohol level of 240 mg/100 ml or more; R30.0 Dysuria; I25.10 Atherosclerotic heart disease of native coronary artery without angina pectoris; J44.9 Chronic obstructive pulmonary disease, unspecified; Z95.1 Presence of aortocoronary bypass graft; Z82.49 Family history of ischemic heart disease and other diseases of the circulatory system
CPT/HCPCS: 36415; 71045; 80048; 80061; 80307; 80320; 81001; 83036; 84484; 85025; 96361; 96374; G0378